=== PATIENT | male | born 1990 | race Caucasian/White ===

== ENCOUNTER 2017-05-13 18:42 | Emergency (ER) | payer OTHER ==
[~2017-05-13] VITALS: Ht 170.2 cm; Wt 55.0 kg
[2017-05-13 22:14] VITALS: BP 121/85
== END 2017-05-13 22:17 | disposition home or self-care (01) ==
LOC: ED 22:15
DX: T40.1X1A Poisoning by heroin, accidental (unintentional), initial encounter (principal); F15.10 Other stimulant abuse, uncomplicated; F11.10 Opioid abuse, uncomplicated
CPT/HCPCS: 99283

== ENCOUNTER 2018-03-25 19:46 | Inpatient (IN) | payer OTHER ==
[~2018-03-25] VITALS: Ht 172.7 cm; Wt 66.0 kg
--- NOTE | 2018-03-25 19:57 | NUR ---
PT BIB [facility] FOR A OD ON HEROIN. NARCAN GIVEN BY EMS. PT FSBS WAS IN THE 30'S PT WAS GIVEN D10 250 ML THROUGH AN IO BY EMS. PT IS ALERT AT THIS TIME BUT DROWSY. VS STABLE. PROJECT DEVELOPMENT LEADER ON. SINUS TACH NOTED. CALL LIGHT IN PLACE. WILL CONTINUE TO MONITOR.
[2018-03-25 20:49] LABS: BASOPHILS # (AUTO) 0.04 x10^3/uL (0-0.1); BASOPHILS % (AUTO) 0 % (0-1); EOSINOPHILS # (AUTO) 0.16 x10^3/uL (0-0.4); EOSINOPHILS % (AUTO) 2 % (1-7); LYMPHOCYTES # (AUTO) 1.29 x10^3/uL (1-3.4); LYMPHOCYTES % (AUTO) 13 % (22-44); MD NO; MEAN CORPUSCULAR HEMOGLOBIN 31.1 pg (27.5-34.5); MEAN CORPUSCULAR HGB CONC 34.1 g/dL (33.2-36.2); MEAN PLATELET VOLUME 8.4 fL (7.4-10.4); MONOCYTES # (AUTO) 0.69 x10^3/uL (0.2-0.8); MONOCYTES % (AUTO) 7 % (2-9); NEUTROPHILS # (AUTO) 7.96 x10^3/uL (1.8-6.8); NEUTROPHILS % (AUTO) 79 % (42-75); PLATELET COUNT 259 x10^3/uL (130-400); RED BLOOD COUNT 5.58 x10^6/uL (4.38-5.82); RED CELL DISTRIBUTION WIDTH 13.3 % (9.4-14.8)
[2018-03-25] MEDS ORDERED: ONDANSETRON 2MG/ML, 2ML ONE (20:52)
--- NOTE | 2018-03-25 20:56 | NUR ---
PT RESTING IN ROOM. PT IS DROWSY. PT IS A&O X4. VS STABLE. RESP 16. DIRECTOR GEOPHYSICAL LABORATORY ON. NSR NOTED. CALL LIGHT IN PLACE. WILL CONTINUE TO MONITOR.
[2018-03-25 20:59] LABS: INTERNATIONAL NORMALIZED RATIO 1.11 (0.93-1.1); PROTHROMBIN TIME 11.7 Seconds (9.6-11.5)
[2018-03-25] MEDS ORDERED: ONDANSETRON 2MG/ML, 2ML IVPush ONE (21:00)
[2018-03-25] MEDS ORDERED: MORPHINE SULFATE 4 MG/ML, 1ML IVPush PRN (21:00)
[2018-03-25 21:01] LABS: ALANINE AMINOTRANSFERASE 37 U/L (12-78); ALBUMIN 4.4 g/dL (3.4-5.0); ANION GAP 8 mmol/L (5-15); CALCIUM 8.7 mg/dL (8.5-10.1); CHLORIDE 105 mmol/L (98-107); CREATININE 1.17 mg/dL (0.7-1.3)
[2018-03-25 21:03] LABS: ALKALINE PHOSPHATASE 106 U/L (45-117); BILIRUBIN,TOTAL 0.6 mg/dL (0.2-1.0); CREATINE KINASE, TOTAL 252 U/L (39-308); TOTAL PROTEIN 8.3 g/dL (6.4-8.2)
[2018-03-25] MEDS ORDERED: NALOXONE 1 MG/ML, 2ML ONE (21:11)
--- NOTE | 2018-03-25 21:15 | NUR ---
RESP 10 PULSE OX 85%. MORE NARCAN GIVEN. OXYGEN NOW 100% RESP 20
[2018-03-25] MEDS ORDERED: NALOXONE 1 MG/ML, 2ML IVPush ONE ×2 (21:30→23:30)
--- NOTE | 2018-03-25 22:05 | NUR ---
pt resting in room. regular resp. vs stable. panel monitor on. NSR noted. Will continue to monitor.
[2018-03-25 22:38] LABS: TROPONIN I < 0.015 ng/mL (0.000-0.045)
--- NOTE | 2018-03-25 22:39 | NUR ---
PT RESTING IN ROOM. REGULAR RESP. NO ACUTE DISTRESS NOTED. WILL CONTINUE TO MONITOR.
--- NOTE | 2018-03-25 23:28 | NUR ---
PT SEEN BY THE HOSPITALIST PT RESTING IN ROOM. NO ACUTE DISTRESS NOTED. PT IS DROWSY. CALL LIGHT IN PLACE. WILL CONTINUE TO MONITOR.
[2018-03-25] MEDS ORDERED: ACETAMINOPHEN 325 MG TABLET PO PRN (23:30)
[2018-03-25] MEDS ORDERED: POLYETHYLENE GLYCOL 17 GM PACKET PO PRN (23:30)
[2018-03-25] MEDS ORDERED: ONDANSETRON 2MG/ML, 2ML IVPush PRN (23:30)
[2018-03-25] MEDS ORDERED: BISACODYL 10 MG SUPP PR PRN (23:30)
--- NOTE | 2018-03-25 23:32 | NUR ---
RESP 7 A MIN. NARCAN GIVEN. RESP NOW 16. PULSE OX 99% ON 2L. HOG COOLER ON. WILL CONTINUE TO MONITOR.
[2018-03-25] MEDS: SODIUM CHLORIDE 0.9% 1,000 ML IV SCH (23:40)
--- NOTE | 2018-03-26 00:03 | NUR ---
PT AMBULATED TO BATHROOM. PT REFUSED TO GIVE UA. PT NOW RESTING IN ROOM. REGULAR RESP. PULSE OX ON. HADOOP JAVA DEVELOPER ON. NSR NOTED. CALL LIGHT IN PLACE. WILL CONTINUE TO MONITOR.
[2018-03-26 00:05] LABS: HEMOGLOBIN A1C 5.2 % (4.2-6.3)
[2018-03-26] MEDS ORDERED: HEPARIN 5,000 UNITS/ML, 1ML ONE (00:08)
[2018-03-26] MEDS: HEPARIN 5,000 UNITS/ML, 1ML SQ SCH ×3 (00:11→15:21)
--- NOTE | 2018-03-26 01:05 | NUR ---
PT RESTING IN ROOM. NO ACUTE DISTRESS NOTED. CARDIA MONITOR ON. VS STABLE WILL CONTINUE TO MONITOR.
--- NOTE | 2018-03-26 01:29 | NUR ---
TASK RN: Pt provided water, diet order in place.
--- NOTE | 2018-03-26 01:41 | NUR ---
PT RESTING IN ROOM. REGULAR RESP. NO ACUTE DISTRESS NOTED. WILL CONTINUE TO MONITOR.
--- NOTE | 2018-03-26 02:15 | NUR ---
LAB IN ROOM
[2018-03-26 02:22] LABS: BASOPHILS # (AUTO) 0.01 x10^3/uL (0-0.1); BASOPHILS % (AUTO) 0 % (0-1); EOSINOPHILS % (AUTO) 0 % (1-7); LYMPHOCYTES # (AUTO) 0.98 x10^3/uL (1-3.4); LYMPHOCYTES % (AUTO) 8 % (22-44); MD NO; MEAN CORPUSCULAR HGB CONC 33.9 g/dL (33.2-36.2); MEAN CORPUSCULAR VOLUME 91.3 fL (81-97); MEAN PLATELET VOLUME 8.3 fL (7.4-10.4); MONOCYTES # (AUTO) 0.47 x10^3/uL (0.2-0.8); MONOCYTES % (AUTO) 4 % (2-9); NEUTROPHILS % (AUTO) 88 % (42-75); PLATELET COUNT 256 x10^3/uL (130-400); RED BLOOD COUNT 5.15 x10^6/uL (4.38-5.82); RED CELL DISTRIBUTION WIDTH 13.1 % (9.4-14.8)
[2018-03-26 02:32] LABS: ALANINE AMINOTRANSFERASE 31 U/L (12-78); ANION GAP 7 mmol/L (5-15); CALCIUM 8.5 mg/dL (8.5-10.1); CHLORIDE 107 mmol/L (98-107); CREATININE 0.79 mg/dL (0.7-1.3)
[2018-03-26 02:35] LABS: ALKALINE PHOSPHATASE 95 U/L (45-117); BILIRUBIN,TOTAL 0.5 mg/dL (0.2-1.0); TOTAL PROTEIN 7.6 g/dL (6.4-8.2)
[2018-03-26 02:37] LABS: TROPONIN I 0.026 ng/mL (0.000-0.045)
--- NOTE | 2018-03-26 03:18 | NUR ---
pt resting in room. global ceo on. NSR noted. VS stable. no acute distress noted. call light in place. will continue to monitor.
--- NOTE | 2018-03-26 04:53 | NUR ---
PT EATING IN ROOM. NO ACUTE DISTRESS NOTED. VS STABLE. WILL CONTINUE TO MONITOR.
--- NOTE | 2018-03-26 05:14 | NUR ---
PT REPORTS HE IS FEELING PARANOID. "I CAN HEAR PEOPLE TALKING ABOUT ME." PT ASSURED NO ONE IS TALKING ABOUT HIM. PT ALSO REPORTS HE DID METH YESTERDAY. PT NOW RESTING IN ROOM. REGULAR RESP. NO ACUTE DISTRESS NOTED. VS STABLE. WILL CONTINUE TO MONIOR.
--- NOTE | 2018-03-26 05:53 | NUR ---
PT MOVED TO A HOSPITAL BED. CALL LIGHT IN PLACE. WILL CONTINUE TO MONITOR.
--- NOTE | 2018-03-26 06:58 | NUR ---
BEDSIDE REPORT GIVEN TO DEREK TALBERT
--- NOTE | 2018-03-26 06:59 | NUR ---
FSBS 77. ORANGE JUICE GIVEN. DEREK TALBERT AWARE BEDSIDE REPORT GIVEN TO DEREK TALBERT
[2018-03-26] MEDS: SODIUM CHLORIDE 0.9% 1,000 ML IV SCH ×3 (07:26→23:26)
--- NOTE | 2018-03-26 07:30 | NUR ---
pt ambulated to bathroom with standby assist. pt tolerated well. shuffling gait
[2018-03-26 08:59] LABS: TROPONIN I < 0.015 ng/mL (0.000-0.045)
[2018-03-26] MEDS ORDERED: SENNA/DOCUSATE TABLET PO SCH (09:00)
[2018-03-26 13:44] VITALS: BP 118/66
[2018-03-26 14:06] VITALS: BP 118/66
[2018-03-26 20:45] VITALS: BP 101/58
[2018-03-27] MEDS: HEPARIN 5,000 UNITS/ML, 1ML SQ SCH (00:36)
[2018-03-27 00:55] VITALS: BP 102/64
[2018-03-27 01:08] LABS: AMPHETAMINE SCREEN, URINE Positive (Negative); BARBITURATE SCREEN, URINE Negative (Negative); BENZODIAZEPINE SCREEN, URINE Negative (Negative); CANNABINOID SCREEN, URINE Negative (Negative); COCAINE SCREEN, URINE Negative (Negative); METHADONE SCREEN, URINE Negative (Negative); OPIATE SCREEN, URINE Positive (Negative)
== END 2018-03-27 05:30 | disposition left against medical advice (07) | DRG 917 ==
LOC: ED 21:47 → EDIP 23:02 → 4WST 03-26 13:04
PROVIDERS: ADMIT Hospitalist; ATTEND Hospitalist
PROC: 5A12012 Performance of Cardiac Output, Single, Manual (ICD-10-PCS; principal; 2018-03-25)
DX: T40.1X1A Poisoning by heroin, accidental (unintentional), initial encounter (principal); I46.9 Cardiac arrest, cause unspecified; F11.10 Opioid abuse, uncomplicated; Z53.21 Procedure and treatment not carried out due to patient leaving prior to being seen by health care provider; F17.210 Nicotine dependence, cigarettes, uncomplicated; Y92.89 Other specified places as the place of occurrence of the external cause
CPT/HCPCS: 36415; 71045; 80053; 80074; 80307; 82140; 82550; 82962; 83036; 84484; 85025; 85610; 85730; 87806; 99285; G0378; J1644; J2405; G0475; J2310; J7030